=== PATIENT | male | born 1980 | race Two or more races ===

== ENCOUNTER 2021-01-31 20:50 | Emergency (ER) | payer MEDICAID ==
[~2021-01-31] VITALS: Ht 162.6 cm; Wt 74.5 kg
[~2021-01-31 20:50] MED LIST: NOCURR
[2021-01-31] MEDS ORDERED: PERTUSS(ACELL),DIPH,TET VAC/PF 0.5 ML SYRINGE IM. ONE (22:45)
[2021-01-31] MEDS ORDERED: LIDOCAINE 1%/EPI 1:200,000/PF 10 ML VIAL SQ ONE (22:45)
[2021-01-31] MEDS ORDERED: BACITRACIN 0.9 GM PACKET OINTMENT TP ONE (23:00)
[2021-01-31] MEDS ORDERED: DOXYCYCLINE HYCLATE 100 MG TABLET PO ONE (23:45)
[2021-02-01] VITALS: BP 129/78
== END 2021-02-01 00:33 | disposition home or self-care (01) ==
LOC: EMS 20:52
DX: S61.216A Laceration without foreign body of right little finger without damage to nail, initial encounter (principal); Z88.0 Allergy status to penicillin; W25.XXXA Contact with sharp glass, initial encounter; Y93.89 Activity, other specified; Y92.89 Other specified places as the place of occurrence of the external cause; Y99.8 Other external cause status
CPT/HCPCS: 12002; 90471; 90715; 99283; J3490